=== PATIENT | female | born 1950 | race Caucasian/White ===

== ENCOUNTER → 2024-08-12 06:54 | Outpatient (CLI) | payer MEDICARE, OTHER, SELFPAY ==
--- NOTE | 2024-08-12 06:58 | DI.ECHO.S_ITS ---
[facility]+ [facility] : : [address] : : [place] : : [id number] : : Phone: [phone] Echocardiogram Report + + :Name: MARINA VENEGAS Study Date: 08/12/2024 Height: 60 in : :[facility] ReadingLocation: Weight: 206 lb : : Gender: Female BSA: 1.9 m2 : :: 1950 Age: 74 yrs BP: 101/65 mmHg: :Reason For Study: HEART FAILURE REDUCED EJECTION FRACTION : :Ordering Physician: ALDAIR, : :PAOLA Performed By: Kathy Lo : :Referring: PAOLA QUINTEROS : + + Interpretation Summary The ejection fraction is estimated to be 30-35%. There is a significant dyssynchronous contraction pattern, consistent with a conduction abnormality. Diastolic function could not be accurately assessed due to unobtainable data. The left atrium is mildly dilated. The right ventricle is normal in size and function. No significant valvular abnormalities. Pulmonary artery pressures cannot be estimated because of the lack of a measurable TR jet velocity but the IVC suggests a CVP of around 3 mmHg. There is a trivial pericardial effusion noted. Procedure: A two-dimensional transthoracic echocardiogram with color flow and Doppler was performed. The study quality was technically adequate. There is no prior echocardiogram noted for this patient. The patient had a bundle branch block rhythm during the exam. The heart rate ranged between 79-91 bpm during the study. Left Ventricle: The left ventricle is normal in size and wall thickness. The ejection fraction is estimated to be 30-35%. There is a significant dyssynchronous contraction pattern, consistent with a conduction abnormality. Diastolic function could not be accurately assessed due to unobtainable data. Right Ventricle: The right ventricle is normal in size and function. Atria: The left atrium is mildly dilated. Right atrial size is normal. There is no Doppler evidence for an interatrial shunt. Mitral Valve: The mitral valve leaflets appear mildly thickened, but open well. There is no mitral regurgitation noted. Aortic Valve: The aortic valve is trileaflet. The aortic valve opens well. There is no aortic valve stenosis. There is trace aortic regurgitation. Tricuspid Valve: The tricuspid valve is normal in structure and function. There is trace tricuspid regurgitation. Pulmonary artery pressures cannot be estimated because of the lack of a measurable TR jet velocity but the IVC suggests a CVP of around 3 mmHg. Pulmonic Valve: The pulmonic valve leaflets are thin and pliable; valve motion is normal. There is no pulmonic valvular regurgitation. Great Vessels: The aortic root is normal size. The dimensions of the ascending aorta are normal. The IVC is of normal diameter and collapses greater than 50% with a sniff. This suggests a low right atrial pressure of 3 mm Hg. Pericardium/ Pleura There is a trivial pericardial effusion noted. There is no pleural effusion. MMode/2D Measurements & Calculations LVIDd: 5.3 cm LVOT diam: 2.0 cm LVIDs: 4.7 cm Ao root diam: 2.9 cm FS: 12.1 % asc Aorta Diam: 3.0 cm EPSS: 1.5 cm IVSd: 0.90 cm LVPWd: 0.84 cm LV de anda. diameter/BSA (cm/m^2): 2.8 LV sys. diameter/BSA (cm/m^2): 2.5 LA A2 area: 18.2 cm2 RA long axis: 4.8 cm LA A4 area: 20.0 cm2 RA area: 11.6 cm2 LA length (vol): 4.6 cm RA vol: 24.1 ml LA vol: 67.8 ml RA : 12.8 ml/m2 LA vol index: 35.9 ml/m2 IVC diam: 0.93 cm RVD1 (basal): 3.2 cm RVD2 (mid): 2.7 cm TAPSE: 2.3 cm Doppler Measurements & Calculations Ao V2 max: 101.6 cm/sec LVOT Max Jere: 59.9 cm/sec Ao V2 mean: 69.8 cm/sec LV V1 max P.4 mmHg Ao max P.1 mmHg LV V1 VTI: 10.6 cm Ao mean P.2 mmHg JEREMY(I,D): 1.9 cm2 Ao V2 VTI: 18.1 cm JEREMY(V,D): 1.9 cm2 sev ratio: 0.58 JEREMY indexed to BSA (cm^2/m^2): 1.0 Med Peak E' Jere: 6.9 cm/sec PA V2 max: 83.8 cm/sec Lat Peak E' Jere: 13.2 cm/sec PA V2 mean: 23.9 cm/sec PA mean P.63 mmHg PA pr(Accel): 27.6 mmHg SV(LVOT): 34.5 ml Reading Physician:11:12 AM
== END ==
LOC: ECHO 06:56
PROVIDERS: PCP Family Medicine
DX: I50.20 Unspecified systolic (congestive) heart failure (principal)
CPT/HCPCS: 93306